=== PATIENT | male | born 1935 | race Caucasian/White ===

== ENCOUNTER → 2017-02-04 | Outpatient (CLI) | payer OTHER | LOC: BHLMT 10:00 | PROVIDERS: ATTEND Internal Medicine Interventional Cardiology | DX: R01.1 Cardiac murmur, unspecified (principal); I48.91 Unspecified atrial fibrillation | CPT/HCPCS: 93306-PO ==

== ENCOUNTER → 2017-12-08 | Outpatient (CLI) | payer OTHER | LOC: FIMAGING 19:15 | PROVIDERS: ATTEND Physical Medicine & Rehabilitation Pain Medicine | DX: M51.26 Other intervertebral disc displacement, lumbar region (principal); M48.061 Spinal stenosis, lumbar region without neurogenic claudication; M51.36 Other intervertebral disc degeneration, lumbar region; M51.37 Other intervertebral disc degeneration, lumbosacral region; M99.73 Connective tissue and disc stenosis of intervertebral foramina of lumbar region ==

== ENCOUNTER 2018-03-15 10:40 | Observation (INO) | payer OTHER ==
--- NOTE | 2018-03-15 11:11 | CPEKG ---
Heart Rate: 123 RR Interval: 488 P-R Interval: 156 QRSD Interval: 124 QT Interval: 316 QTC Interval: 452 P [place]: 108 QRS [place]: 24 T Wave [place]: -19 EKG Severity - ABNORMAL ECG - EKG Impression: SINUS TACHYCARDIA EKG Impression: IVCD, CONSIDER ATYPICAL RBBB Electronically Signed By: Marivel Mancini 15-Mar-2018 15:02:14
[2018-03-15 11:34] LABS: PLATELET COUNT 175 10^3/uL (150-400)
--- NOTE | 2018-03-15 11:48 | EDPHY ---
H & P Stated Complaint: Elevated heart rate. Time Seen by Provider: 03/15/18 11:47 HPI/ROS: CHIEF COMPLAINT: "My pulse is high" HISTORY OF PRESENT ILLNESS: The patient is an 82 y/o male with intermittent atrial fibrillation (cardioverted in the past, last known episode of afib in 2013) arriving with his complaining of a rapid heart rate onset this morning. It's not clear if he woke up with symptoms or if they began after waking. He has had similar symptoms previously and he said it "was the same thing, it just goes out of whack with the a-fib." He denies dyspnea or chest pain, but does note a brief 5-minute episode of left anterior shoulder pain on the drive here. He takes a full aspirin every other day, but otherwise does not use any medications. No fever, cough, vomiting, diarrhea, abdominal pain, blood in stool. No caffeine today. One week ago he got out of bed quickly to answer his phone and possibly briefly lost consciousness then fell and struck his posterior right shoulder and forehead on furniture; he denies any ongoing symptoms related to this. REVIEW OF SYSTEMS: A ten point review of systems was performed and is negative with the exception of the items mentioned in the HPI. Past medical history: Paroxysmal atrial fibrillation - no medications, prior cardioversions x2; valvular heart disease; skin cancer Past surgical history: Skin lesion resections Family history: Noncontributory Social history: at bedside, she notes they have both been under stress lately because she just had a tumor resected from her breast. Lives in [place]. Retired cadd drafter. PCP: Dr. Hester. Paring Machine Operator: Dr. Bautista. General Appearance: Alert. Vital signs reviewed. HR 120s. Blood pressure 137 /94. Eyes: Pupils equal and round, no conjunctival injection, no discharge. Anicteric. ENT, Mouth: Mucous membranes are moist, no oropharyngeal erythema or edema. Neck: No lymphadenopathy, supple. No jugular venous distension. Respiratory: Lungs are clear to auscultation; no wheezes, rales, or rhonchi. Cardiovascular: Regular rate and rhythm; no murmur, rub, or gallop. Gastrointestinal: Abdomen is soft and nontender, no masses or organomegaly. Skin: Warm and dry, no rashes on exposed skin, normal color. Back: Nontender to palpation over the thoracolumbar spine. No CVAT. Extremities: No lower extremity edema, no calf tenderness or swelling. Purple bruise posterior right shoulder. Neurological: Alert and oriented. Moving all four extremities easily and equally. Psychiatric: Normal affect. - Personal History Current Tetanus Diphtheria and Acellular Pertussis (TDAP): Unsure - Medical/Surgical History Hx Asthma: No Hx Chronic Respiratory Disease: No Hx Diabetes: No Hx Cardiac Disease: Yes Hx Renal Disease: No Hx Cirrhosis: No Hx Alcoholism: No Hx HIV/AIDS: No Hx Splenectomy or Spleen Trauma: No Other PMH: heart valve "leakage". afib. - Social History Smoking Status: Never smoked Constitutional: Initial Vital Signs Temperature (C) 36.4 C 03/15/18 10:41 Heart Rate 122 H 03/15/18 10:41 Respiratory Rate 16 03/15/18 10:41 Blood Pressure 137/94 H 03/15/18 10:41 O2 Sat (%) 94 03/15/18 10:41 O2 Delivery Mode Room Air Allergies/Adverse Reactions: No Known Allergies Allergy (Verified 02/18/14 09:42) Home Medications: Medication Instructions Recorded Aspirin [Aspirin 325 mg (*)] 325 mg PO Q2D 03/15/18 Carboxymethylcellulose 1% [Refresh 1 drop EACHEYE DAILY PRN 03/15/18 Celluvisc (*)] Melatonin [Melatonin 3 MG (*)] 3 mg PO HS PRN 03/15/18 Medical Decision Making ED Course/Re-evaluation: This is a well-appearing 82 y/o male with a history of occasional atrial fibrillation who presents with tachycardia onset this morning, but few other symptoms. His HR has been around 120 while here. Posterior right shoulder ecchymosis noted--he states that this is the result of a fall last week. He has full active range of motion of his right shoulder. Exam is unremarkable otherwise. Plan for IV, labs, EKG. The 12 lead EKG was interpreted by myself. Sinus tachycardia rate 123. See hard copy and/or "tracemaster" electronic copy for interpretation. 10mg IV Diltazem and 1L IV NS ordered. Reassessed patient. Two-lead EKG on monitor appears to be atrial flutter. Rate on monitor is steady around 120. BP now 108 systolic. Plan for repeat EKG. Was being given IV fluids, normal saline. Will start IV diltiazem. I am planning admission for rate control and possible cardioversion. He will likely require ALISON prior to cardioversion. Anticoagulation has not been started in the emergency department. 1249: Spoke with hospitalist service. Dr. Hill accepts admission. The 12 lead EKG was interpreted by myself. Sinus tachycardia. See hard copy and/ or "tracemaster" electronic copy for interpretation. 1302: Consulted with Dr. Foster, pharmaceutical laboratory technician. He will consult during admission. Differential Diagnosis: Considered a differential diagnosis that includes but is not limited to sinus tachycardia, atrial fibrillation, atrial flutter, acute coronary syndrome, valvular disease, hypertension,, stimulant use. - Data Points Laboratory Results: Laboratory Results 03/15/18 11:15 03/15/18 11:15 03/15/18 03/15/18 03/15/18 11:15 11:15 11:15 WBC RBC Hgb Hct MCV MCH MCHC RDW Plt Count MPV Neut % (Auto) Lymph % (Auto) [place] % (Auto) Eos % (Auto) Baso % (Auto) Nucleat RBC Rel Count Absolute Neuts (auto) Absolute Lymphs (auto) Absolute Monos (auto) Absolute Eos (auto) Absolute Basos (auto) Absolute Nucleated RBC Immature Gran % Immature Gran # Sodium 144 mEq/L mEq/L (135-145) Potassium 4.2 mEq/L mEq/L (3.3-5.0) Chloride 111 mEq/L H mEq/L (97-110) Carbon Dioxide 22 mEq/l mEq/l (22-31) Anion Gap 11 mEq/L mEq/L (8-16) BUN 21 mg/dL mg/dL (7-23) Creatinine 0.8 mg/dL mg/dL (0.7-1.3) Estimated GFR > 60 Glucose 117 mg/dL H mg/dL (70-100) Calcium 10.0 mg/dL mg/dL (8.5-10.4) Troponin I 0.012 ng/mL ng/mL (0.000-0.034) TSH 0.454 uIU/mL L uIU/mL (0.465-4.680) 03/15/18 11:15 WBC 7.15 10^3/uL 10^3/uL (3.80-9.50) RBC 4.64 10^6/uL 10^6/uL (4.40-6.38) Hgb 15.5 g/dL g/dL (13.7-17.5) Hct 45.4 % % (40.0-51.0) MCV 97.8 fL fL (81.5-99.8) MCH 33.4 pg pg (27.9-34.1) MCHC 34.1 g/dL g/dL (32.4-36.7) RDW 13.9 % % (11.5-15.2) Plt Count 175 10^3/uL 10^3/uL (150-400) MPV 10.8 fL fL (8.7-11.7) Neut % (Auto) 75.0 % H % (39.3-74.2) Lymph % (Auto) 15.4 % % (15.0-45.0) [place] % (Auto) 7.7 % % (4.5-13.0) Eos % (Auto) 1.1 % % (0.6-7.6) Baso % (Auto) 0.4 % % (0.3-1.7) Nucleat RBC Rel Count 0.0 % % (0.0-0.2) Absolute Neuts (auto) 5.36 10^3/uL 10^3/uL (1.70-6.50) Absolute Lymphs (auto) 1.10 10^3/uL 10^3/uL (1.00-3.00) Absolute Monos (auto) 0.55 10^3/uL 10^3/uL (0.30-0.80) Absolute Eos (auto) 0.08 10^3/uL 10^3/uL (0.03-0.40) Absolute Basos (auto) 0.03 10^3/uL 10^3/uL (0.02-0.10) Absolute Nucleated RBC 0.00 10^3/uL 10^3/uL (0-0.01) Immature Gran % 0.4 % % (0.0-1.1) Immature Gran # 0.03 10^3/uL 10^3/uL (0.00-0.10) Sodium Potassium Chloride Carbon Dioxide Anion Gap BUN Creatinine Estimated GFR Glucose Calcium Troponin I TSH Medications Given: Discontinued Medications Diltiazem HCl (Cardizem 25 Mg/5 Ml Vial) 10 mg IVP EDNOW ONE Stop: 03/15/18 12:09 Last Admin: 03/15/18 12:22 Dose: 10 mg Sodium Chloride (Ns) 1,000 mls @ 0 mls/hr IV ONCE ONE; Wide Open PRN Reason: Protocol Stop: 03/15/18 12:00 Last Admin: 03/15/18 12:11 Dose: 1,000 mls Diltiazem HCl 125 mg/ Dextrose 125 mls @ 0 mls/hr IV EDNOW ONE; As Directed PRN Reason: Protocol Stop: 03/15/18 12:47 Last Admin: 03/15/18 13:33 Dose: 125 mls Departure - Departure Disposition: [facility] Inpatient Acute Clinical Impression: Atrial flutter Qualifiers: Atrial flutter type: unspecified Qualified Code(s): I48.92 - Unspecified atrial flutter Condition: Fair Report Scribed for: Marivel Mancini Report Scribed by: Vilma Alcantara Date of Report: 03/15/18 Time of Report: 12:06 Physician Review and Approval Statement: 03/15/18 11:48 Portions of this note were transcribed by the medical research associate. I, Dr. Marivel Mancini, personally performed the history, physical exam, and medical decision- making; and confirmed the accuracy of the information in the transcribed note.
[2018-03-15] MEDS ORDERED: NS 1,000 ML IV ONE (11:59)
[2018-03-15] MEDS ORDERED: DILTIAZEM 25 MG/5 ML VIAL IVP ONE (12:08)
[2018-03-15] MEDS ORDERED: DILTIAZEM 125 MG in D5W 125 ML IV ONE (12:46)
[2018-03-15] MEDS ORDERED: MELATONIN 3 MG TAB PO PRN (13:46)
[2018-03-15] MEDS ORDERED: CARBOXYMETHYLCELLULOSE 1% 0.4 ML DROPERETTE EACHEYE PRN (13:46)
--- NOTE | 2018-03-15 13:53 | GHP ---
[f rep st] HISTORY AND PHYSICAL DATE OF ADMISSION: 03/15/2018 CHIEF COMPLAINT: Tachycardia. HISTORY OF PRESENT ILLNESS: This is an 82-year-old male with history of paroxysmal atrial fibrillati on requiring cardioversion, last episode was 3 years ago and prior to that was 5 years before that. He presents to the hospital with tachycardia. This morning, the patient notice some palpitations. H e took his pulse and noted it to be in the mid 120s. He also took his blood pressure, which was norm al. He denies any chest pain. He denies any excessive alcohol use. He is unsure what triggered thi s episode. 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 PAST MEDICAL HISTORY: 1. Atrial fibrillation. 2. Valvular heart disease. PAST SURGICAL HISTORY: Denies other than cardioversion. HOME MEDICATIONS: Reviewed, refer to [facility] for details. ALLERGIES: No known drug allergies. SOCIAL HISTORY: The patient lives in [place]. He denies any alcohol, tobacco, or illicit drug use. FAMILY HISTORY: Reviewed and noncontributory. REVIEW OF SYSTEMS: Comprehensive 10-point review of systems was done and is negative, except for as mentioned in the HPI. PHYSICAL EXAMINATION: VITAL SIGNS: Blood pressure 122/92, pulse 124, respiratory rate 16, O2 satura tion 92% on room air. Temperature afebrile. GENERAL: In no acute distress. HEENT: Head: Normoce phalic, atraumatic. Eyes: PERRLA. Sclerae anicteric. Mouth: Moist mucous membranes. NECK: Supp le. No lymphadenopathy. CARDIOVASCULAR: Tachycardic S1, S2. No JVD. No lower extremity edema. P ULMONARY: Lungs are clear. No wheezes, rales, or rhonchi. ABDOMEN: Soft, nontender, nondistended. No guarding or rebound tenderness. Normoactive bowel sounds. EXTREMITIES: No clubbing or cyanosi s. NEURO: Cranial nerves 2-12 grossly intact. No focal, motor, or sensory deficits. SKIN: Clear. No rashes. DIAGNOSTICS: WBC 7.15, hemoglobin 15.5, hematocrit 45.4, platelets 175. Sodium 144, potassium 4.2, chloride 111, BUN 21, creatinine 0.8, glucose 117. Troponins negative. EKG, which I visualized and personally interpreted, was read as sinus tachycardia, rate 123 beats per minute, but in the ER, it appears that he is in atrial flutter on the monitor. ASSESSMENT/PLAN: 1. This is an 82-year-old male with history of paroxysmal atrial fibrillation presenting with tachyc ardia which I suspect is due to atrial flutter. Plan: Patient will be placed on observation. Cardi ology has been consulted by the ER. We will obtain echocardiogram. Will start on Eliquis for stroke prophylaxis. We will also start on IV diltiazem with a goal rate of less than 100. 2. History of valvular heart disease. Plan: We will obtain an echocardiogram. CODE STATUS: The patient requests to be full code status. /[id number]/MODL
[2018-03-15] MEDS ORDERED: DILTIAZEM 125 MG in D5W 125 ML IV SCH (14:00)
[2018-03-15] MEDS ORDERED: ACETAMINOPHEN 325 MG TAB PO PRN (16:09)
--- NOTE | 2018-03-15 16:09 | ECHO ---
[email or web address] [address] [address] Main: [phone] Fax: [email or web address] Echocardiogram Name: NARDA GIRARD MR#: [id number] Study Date: 03/15/2018 Study Time: 02:32 PM Date of : 1935 Age: 82 year(s) Height: 182.9 cm (72 in.) Weight: 122.47 kg (270 lb.) BSA: 2.42 m2 Gender: Male Examination: Echo Indication: Atrial Fibrillation Image Quality: Technically Difficult Contrast: Requested by: Pako Hill BP: 138 mmHg/82 mmHg Heart Rate: Rhythm: Indication: Atrial Fibrillation Procedure Staff Airline Pilot Flight Instructor: Amina Abdul RDCS Reading Physician: Sarwat Champion MD Requesting Provider: Conclusions: Normal size left ventricle. Normal global systolic LV function. The ejection fraction is estimated to be 55-60 %. Mild mitral annular calcification. Trivial to mild mitral regurgitation. Moderate aortic cusp calcification is present. No aortic valve stenosis is present. Mildly dilated ascending aorta measuring 4.6 cm. No old studies for comparison. Measurements: Chambers Valvular Assessment AV/MV Valvular Assessment TV/PV Normal Normal Normal Name Value Range Name Value Range Name Value Range IVSd (2D): 1.2 cm (0.6 cm-1.1 AV Vmax: 0.95 m/s (1 m/s-1.7 TR Vmax: 2.54 mm/s ( - ) cm) m/s) TR PGmax: 26 mmHg ( - ) LVDd (2D): 5.4 cm (4.2 cm-5.9 AV meanP mmHg ( - ) syst. PAP: 31 mmHg ( - ) cm) MV E Vmax: 0.98 m/s ( - ) LVDs (2D): 4.3 cm (2.1 cm-4 cm) LVPWd (2D): 1.0 cm (0.6 cm-1 cm) EF Range: 55-60 % Continued Measurements: Chambers Valvular Assessment AV/MV Valvular Assessment TV/PV Name Value Name Value Name Value LADs: 5.2 cm MV E' Septal: 0.05 m/s CVP (est.): 5 mmHg Patient: NARDA GIRARD Study Date: 03/15/2018 Page 1 of 2 02:32 PM MV E/E' Septal: 20.80 MV E/E' Lateral: 10.70 Additional Vessels Name Value Ao Ascendin.6 cm Findings: Left Ventricle: Normal size left ventricle. No LV hypertrophy. Normal global systolic LV function. The ejection fraction is estimated to be 55-60 %. No regional wall motion abnormality. Right Ventricle: Normal size right ventricle. Left Atrium: The left atrium is normal in size. Right Atrium: The right atrium is normal in size. Mitral Valve: Mild mitral annular calcification. Trivial to mild mitral regurgitation. Aortic Valve: Moderate aortic cusp calcification is present. No aortic valve stenosis is present. Tricuspid Valve: The tricuspid valve is normal in appearance and function. Mild tricuspid regurgitation is present. The pulmonary artery pressure is normal. Pulmonic Valve: The pulmonic valve is normal in appearance and function. Mild pulmonic valve regurgitation is noted. Aorta: The aorta is normal. Mildly dilated ascending aorta measuring 4.6 cm. Pericardium: No pericardial effusion. There is pericardial fat. (No Signature Object) Patient: NARDA GIRARD Study Date: 03/15/2018 Page 2 of 2 02:32 PM D:_[id number]
[2018-03-15] MEDS: ENOXAPARIN 120 MG/0.8 ML SYR SC SCH ×2 (17:30→21:36)
[2018-03-16 05:41] LABS: PLATELET COUNT 167 10^3/uL (150-400)
--- NOTE | 2018-03-16 09:39 | CPEKG ---
Heart Rate: 124 RR Interval: 484 P-R Interval: 216 QRSD Interval: 118 QT Interval: 328 QTC Interval: 471 P [place]: 133 QRS [place]: 3 T Wave [place]: -52 EKG Severity - ABNORMAL ECG - EKG Impression: SINUS TACHYCARDIA EKG Impression: FIRST DEGREE AV BLOCK EKG Impression: INCOMPLETE RIGHT BUNDLE BRANCH BLOCK Electronically Signed For: Marivel Mancini 16-Mar-2018 09:40:47
[2018-03-16] MEDS: ENOXAPARIN 120 MG/0.8 ML SYR SC SCH (10:33)
[2018-03-16 12:13] VITALS: BP 162/82
--- NOTE | 2018-03-16 13:59 | GDS ---
[f rep st] DISCHARGE SUMMARY DISCHARGE DIAGNOSES: 1. Paroxysmal atrial flutter, status post spontaneous cardioversion. 2. History of valvular heart disease. 3. Mildly suppressed TSH at 0.454 with normal free T4. CONSULTANTS: Dr. Will Foster, [facility]. HOSPITAL COURSE: Atrial flutter: The patient presented from heart rate in the 120s. He was started on a diltiazem drip and subsequently converted back to sinus rhythm. He received a dose of low mole cular weight heparin while in the hospital. After speaking with Dr. Foster, patient elected to start warfarin. His CHADS2-VASc score was calculated to be 2. An echocardiogram was done prior to discha rge, which showed an ejection fraction of 55%-60%, with moderate aortic cusp calcification with mild tricuspid regurgitation and mild pulmonic valve regurgitation. On day of discharge, the patient states he feels well and is agreeable to discharge home. DISCHARGE MEDICATIONS: Please refer to discharge medication reconciliation in [facility] for full deta ils. Below is a preliminary list: New medications on hospital discharge: Warfarin 5 mg p.o. daily, metoprolol succinate 25 mg daily. DISCHARGE INSTRUCTIONS: The patient will be discharged from the hospital where he should remain on a spirin 81 mg for a week, then stop after being on warfarin for week. He plans to follow up at [facility] for routine INR monitoring with a goal INR of 2.5. He should follow up with Dr. Binh fernandez for routine hospital followup and will need repeat thyroid testing to ensure he does not have hype rthyroidism contributing to his tachyarrhythmias. /[id number]/MODL
--- NOTE | 2018-03-16 14:50 | GCON ---
[f rep st] CONSULTATION CHIEF COMPLAINT: He is an 82-year-old gentleman admitted with atrial fibrillation. HISTORY OF PRESENT ILLNESS: We have been asked to do a cardiovascular consultation for his atrial fi brillation. He woke up yesterday morning at home in his usual state of health, but he noticed that something was a little bit funny about his heart, and he usually went and had coffee with his in the morning a nd decided he did not really feel well and did not want to do that, which is quite abnormal for him. She got out her blood pressure cuff and found that it informed them that his heart rate was in the 1 25 range, and they decided to come to the emergency room. He was in atrial fibrillation with a rapid ventricular response with no respiratory distress and no significant cardiovascular symptoms. He is getting this intermittent fast heartbeat quite often lately. It goes away usually quite quickl y. He has no history of chest pain, jaw pain, arm pain, chest tightness, heaviness, or squeezing around the chest. He has not had any pleuritic chest pain. He has not had orthopnea, PND, or dyspnea on exertion. He has no hot, swollen joints or major rashes. He has had no trauma to the head, neck, or chest. He has no fevers or chills, upper respiratory tract symptoms, dysuria, or other signs of infection. He has been in his usual state of health has mentioned. He has no other major complaints. He never had ventricular arrhythmias, but he has been intermittent ly having atrial fibrillation. He is known to have 3 valves that leak a small amount, but they are not causing trouble. He has been cardioverted for atrial fibrillation twice before. His past cardiac history is positive for risk factors of being obese. CARDIAC RISK FACTORS: Negative for hypertension, hyperlipidemia, diabetes mellitus, known coronary d isease, smoking history, hyperuricemia, or any family history of premature coronary artery disease. PAST MEDICAL HISTORY: ALLERGIES: None. MEDICATIONS: In [place] and not repeated here. FAMILY HISTORY: He has no family history of premature coronary artery disease. He has no history of unexplained sudden in his family at a young age. SOCIAL HISTORY: He was born in [place], [place], at age 6, went to [place], then he went to [place]. He we nt to high school in [place], [place], which is right next to [place]. He spent 23 years recently in [place], [place], retired, and he walks on a daily basis. 3 years ago, they moved to [place]. He li ves up by [place]. He lives with his who is wonderful and is healthy. He does not smoke. He does not drink significant amounts of alcohol. REVIEW OF SYSTEMS: 10-point review of systems is negative except as noted. PHYSICAL EXAMINATION: VITAL SIGNS: Blood pressure 120/70. Heart rate 70. Respiratory rate 14. He is afebrile. Sitting comfortably in a hospital bed. HEENT: Pupils equal and reactive. Mucous mem branes and mouth moist. NECK: Supple. CARDIOVASCULAR: Reveals S1, S2. Soft systolic murmur at th e left sternal border. No diastolic murmur. No S3, S4, or rubs. He has irregular rhythm. CVA: No tenderness. ABDOMEN: Soft, nontender, without masses. EXTREMITIES: No edema inflammation or ulce ration. NEUROLOGIC: Cranial nerves 2 through 12 grossly normal. Motor and sensory intact. SKIN: S hows age-related changes. He is obese. PSYCHIATRIC: No obvious anxiety or depression. LABORATORY: White count 7.1, hematocrit 45. Followup white count 6.38, hematocrit 41. Chemistries show a sodium of 144, potassium 3.8, chloride 114, carbon dioxide 23, BUN 20, creatinine 0.8, total p rotein 5.5. Troponin negative. TSH 0.454. Echocardiographic study shows no significant pathologic abnormalities. EKG showed atrial fibrillation, and then subsequently he converted to normal sinus rh [facility]. His last EKG showed sinus tachycardia of 124. He now has a heart rate down in the 70s with no sympto ms, an interventricular conduction delay, diffuse nonspecific ST-T changes. ASSESSMENT AND PLAN: 1. Atrial fibrillation. 2. Obesity. The patient is getting intermittent episodes of atrial fibrillation at age 82. The CHADS-VASc score would indicate that he would benefit from full anticoagulation. In the past, he has not been willing to do that except after cardioversions he would do it for 4 to 6 weeks. I have talked to him and his extensively today. I have been in the room several times, and he i s willing to go with Coumadin which would be his drug of choice as opposed to Eliquis or any other no cristiane oral anticoagulant. I have talked to them and to the hospitalist about the protocol I would use which is to take aspirin daily for the next 7 days at 81 mg. He is going to start taking Coumadin 5 mg a day and in 7 days, get his blood drawn at [facility] which is next to their home. [facility] will report the results to our Coumadin clinic at [facility], and th at Coumadin clinic will adjust his doses of Coumadin, and he is not going to continue taking it after the 7 days until he hears from them and does whatever they tell him, which could include not taking any for a little while if he is too anticoagulated to such things as increasing the medicine, reversi ng the medicine if necessary, etc. So he and his understand this. That is the plan. They understand that they are not going to be fully anticoagulated in the 1st 3 or 4 days of this trial until his INR is greater than 2.0, and the y accept that. If he has any trouble with bleeding, he is going to get back to us and let us know. Obesity: He has a significant obesity issue. Clearly this is not going to help his metabolic health , and we have talked about exercise programs such that he will also lose weight but increase his bloo d pressure control, increase his blood sugar control, improve his lipids, etc., with a daily regimen of walking. I totally believe he will do this and he will do a good job at it. Prevention: It has been a couple years since he has had a nuclear stress test, and we would recommen d at some point that he do that. He is going to talk to his primary care doctor, and he may well fol low up with me, as well. I am very happy to see him if that is what he would like to do. His echocardiographic study today showed a normal ejection fraction, mild mitral annular calcificatio n, trivial to mild mitral regurgitation, no aortic stenosis, mildly dilated ascending aorta measuring 4.6 cm. He has no significant major valvular heart disease right now. That echocardiographic study was read by my partner, Dr. Champion. I have answered the family's questions, and we will be available for them at any time. /[id number]/MODL
--- NOTE | 2018-03-16 14:50 | ASMTCMCOM ---
CM Note CM Note Notes: Pt was admitted with tachycardia. Cardiology consulted. He has a hx of afib and cardioversion, and valvular heart disease. He lives with his in [place]. CM will follow for any d/c needs. Date Signed: 03/16/2018 02:49 PM Electronically Signed By:MEEK English
--- NOTE | 2018-03-16 14:54 | ASDISCHSUM ---
Discharge Information Plan Status:Home with No Needs Medically Cleared to Leave:03/16/2018 Discharge Date:03/16/2018 02:00 PM CM D/C Disposition:Home, Routine, Self-Care ADT D/C Disposition:Home, Routine, Self-Care Projected Discharge Date:03/16/2018 02:00 PM Transportation at D/C:Family Discharge Delay Reason: Follow-Up Date:03/16/2018 02:00 PM Discharge Slot: Final Diagnosis: Placement Information Patient Contact Information Contact Name:TRI Relationship: Address:[address] City:[facility] Phone: State/Zip Code:[place] [address] Email: Financial Information Financial Class:Medicare Primary Plan Desc:MEDICARE OUTPATIENT Primary Plan Number:[id number] Secondary Plan Desc:JEFFERY Secondary Plan Number:[id number] Assessment Information [facility] CM Progress Note CM Note IBRAHIMA Note Notes: Pt was admitted with tachycardia. Cardiology consulted. He has a hx of afib and cardioversion, and valvular heart disease. He lives with his in [place]. CM will follow for any d/c needs. Date Signed: 03/16/2018 02:49 PM Electronically Signed By:MEEK English LACE YURY Length of stay for Answers: Less than 1 day current admission Acuity / Level of Answers: No Care: Did the patient have an inpatient admission? Comorbidities - select Answers: Other Notes: afib, valvular heart all that apply disease # of Emergency department Answers: 1-2 visits in the last 6 months Score: 2 Date Signed: 03/16/2018 02:52 PM Electronically Signed By:MEEK English Case Management Discharge Plan Note Case Management Discharge Discharge Order Complete? Answers: Yes Patient to Obtain Answers: via Family Medications Transportation Arranged Answers: Family/Friends Discharge Comments Notes: Pt discharged home today with no CM needs. The pharmacist set up a follow up appt [facility] and is notifying pt. Date Signed: 03/16/2018 02:51 PM Electronically Signed By:MEEK English Intervention Information Intervention Type:*REMY-Signed Date of Service:03/16/2018 10:18 AM Patient Type:Observation Staff Member:Kathie Zuniga Hours: Discipline: Severity: Comment:
[2018-03-17] MEDS ORDERED: ASPIRIN 325 MG TAB PO SCH (09:00)
== END 2018-03-16 14:00 | disposition home or self-care (01) ==
LOC: F2N 14:08
PROVIDERS: ADMIT Family Medicine; ATTEND Family Medicine
DX: I48.92 Unspecified atrial flutter (principal); I48.91 Unspecified atrial fibrillation; R94.6 Abnormal results of thyroid function studies; I35.9 Nonrheumatic aortic valve disorder, unspecified; E66.9 Obesity, unspecified; E86.9 Volume depletion, unspecified
CPT/HCPCS: 93005; 93306; 96361; 96374; 96375; 99285; G0378; J1650

== ENCOUNTER → 2018-03-24 | Outpatient (CLI) | payer OTHER | DX: I34.0 Nonrheumatic mitral (valve) insufficiency (principal); I48.91 Unspecified atrial fibrillation ==

== ENCOUNTER 2018-08-03 09:02 | Emergency (ER) | payer OTHER ==
--- NOTE | 2018-08-03 09:10 | EDPHY ---
H & P Stated Complaint: Tachycardia Time Seen by Provider: 08/03/18 09:03 HPI/ROS: CHIEF COMPLAINT: Tachycardia HISTORY OF PRESENT ILLNESS: The patient has a history of paroxysmal atrial fibrillation presents to the ED with tachycardia that began earlier today. The patient was hospitalized with similar symptoms in February of this year and did spontaneously convert to a sinus rhythm. Since that time he has been maintained on Coumadin. The patient denies any chest pain or shortness of breath. The patient denies any p.o. intake today. The patient does have a history of obstructive sleep apnea. The patient reportedly does take metoprolol for rate control. The patient denies any fever, cough or congestion. The patient does have a history of known valvular heart disease based upon his echocardiogram 4 months ago. REVIEW OF SYSTEMS: A comprehensive 10 point review of systems is otherwise negative aside from elements mentioned in the history of present illness. The Source: Patient Exam Limitations: No limitations - Personal History Current Tetanus/Diphtheria Vaccine: Yes - Medical/Surgical History Hx Asthma: No Hx Chronic Respiratory Disease: No Hx Diabetes: No Hx Cardiac Disease: Yes Hx Renal Disease: No Hx Cirrhosis: No Hx Alcoholism: No Hx HIV/AIDS: No Hx Splenectomy or Spleen Trauma: No Other PMH: heart valve "leakage". afib. - Social History Smoking Status: Never smoked - Physical Exam Exam: General Appearance: Alert, no distress Eyes: Pupils equal and round no pallor or injection ENT, Mouth: Mucous membranes moist Respiratory: Tachycardic and regular Cardiovascular: Regular rate and rhythm Gastrointestinal: Abdomen is soft and nontender, no masses, bowel sounds normal Neurological: A&O, normal motor function, normal sensory exam, normal cranial nerves Skin: Warm and dry, no rashes Musculoskeletal: Neck is supple nontender Extremities: symmetrical, full range of motion Psychiatric: Patient is oriented X 3, there is no agitation Constitutional: Initial Vital Signs Temperature (C) 36.6 C 08/03/18 09:08 Heart Rate 122 H 08/03/18 09:08 Respiratory Rate 18 08/03/18 09:08 Blood Pressure 126/110 H 08/03/18 09:08 O2 Sat (%) 93 08/03/18 09:08 O2 Delivery Mode Room Air Allergies/Adverse Reactions: No Known Allergies Allergy (Verified 08/03/18 09:09) Home Medications: Medication Instructions Recorded Aspirin [Aspirin 325 mg (*)] 325 mg PO Q2D 03/15/18 Carboxymethylcellulose 1% [Refresh 1 drop EACHEYE DAILY PRN 03/15/18 Celluvisc (*)] Melatonin [Melatonin 3 MG (*)] 3 mg PO HS PRN 03/15/18 Metoprolol Succinate 25 mg PO DAILY #30 tab.er.24h 03/16/18 Warfarin Sodium 5 mg PO DAILY #14 tablet 03/16/18 Medical Decision Making - Diagnostics EKG Interpretation: EKG: Complete interpretation has been separately recorded in the Tracemaster archive. Summary impression: Atrial flutter, rate 121, nonspecific interventricular conduction delay noted, right bundle branch pattern Procedures: Procedure: Conscious sedation. Indication: Cardioversion I was asked by Dr. Jamie South to perform procedural sedation. The patient is an appropriate candidate to tolerate procedural sedation. The patient's vital signs and mental status are appropriate. The risks, benefits and alternatives of the sedation were discussed with the patient. The patient is ASA classification 2. The patient's Mallampati airway score was 2 and the patient did meet the 3-3-2 airway measurements. A time out was completed. The patient was sedated with 60 mg of propofol. The patient was monitored with continuous pulse oximetry, monitor car operator and end tidal CO2. There were no complications and no significant hypoxemia. I performed only the conscious sedation The total time I spent at the bedside during the procedural sedation was 16 minutes. The patient was examined after the procedural sedation and has returned to their pre -sedation baseline with normal vital signs and a normal examination. ED Course/Re-evaluation: The patient presents the ED with recurrent atrial flutter. The patient has no complaints of chest pain or acute shortness of breath. The patient had an IV established. He was placed on a nuclear monitoring technician. He was given 10 mg of IV diltiazem with minimal improvement of his symptoms. Patient is started on a diltiazem drip. He has remained NPO. Consultation was made with Dr. Jamie South. 10:30 a.m.: The patient was evaluated by Dr. South who would like to perform cardioversion in the emergency department. The patient is an appropriate candidate for this procedure. 11:30 a.m.: The patient was successfully cardioverted by Dr. South. He is currently recovering from his conscious sedation in the emergency department. 12:00 p.m.: The patient is ambulatory without acute complaints. He is maintained a sinus rhythm. His blood pressure is normal. He will be discharged home and follow up as an outpatient with his regular health occupations instructor. Customary aftercare instructions and return precautions have been given. - Data Points Laboratory Results: Laboratory Results 08/03/18 09:15 18 09:15 08/03/18 08/03/18 08/03/18 09:45 09:15 09:15 WBC RBC Hgb Hct MCV MCH MCHC RDW Plt Count MPV Neut % (Auto) Lymph % (Auto) Creek % (Auto) Eos % (Auto) Baso % (Auto) Nucleat RBC Rel Count Absolute Neuts (auto) Absolute Lymphs (auto) Absolute Monos (auto) Absolute Eos (auto) Absolute Basos (auto) Absolute Nucleated RBC Immature Gran % Immature Gran # PT 24.8 SEC H SEC (12.0-15.0) INR 2.24 H (0.83-1.16) APTT 38.1 SEC H SEC (23.0-38.0) Sodium 140 mEq/L mEq/L (135-145) Potassium 4.5 mEq/L mEq/L (3.3-5.0) Chloride 108 mEq/L mEq/L (97-110) Carbon Dioxide 23 mEq/l mEq/l (22-31) Anion Gap 9 mEq/L mEq/L (6-14) BUN 17 mg/dL mg/dL (7-23) Creatinine 0.8 mg/dL mg/dL (0.7-1.3) Estimated GFR > 60 Glucose 123 mg/dL H mg/dL (70-100) Calcium 10.5 mg/dL H mg/dL (8.5-10.4) Magnesium 2.1 mg/dL mg/dL (1.6-2.3) 08/03/18 09:15 WBC 7.84 10^3/uL 10^3/uL (3.80-9.50) RBC 5.05 10^6/uL 10^6/uL (4.40-6.38) Hgb 16.7 g/dL g/dL (13.7-17.5) Hct 48.5 % % (40.0-51.0) MCV 96.0 fL fL (81.5-99.8) MCH 33.1 pg pg (27.9-34.1) MCHC 34.4 g/dL g/dL (32.4-36.7) RDW 13.7 % % (11.5-15.2) Plt Count 182 10^3/uL 10^3/uL (150-400) MPV 10.5 fL fL (8.7-11.7) Neut % (Auto) 68.8 % % (39.3-74.2) Lymph % (Auto) 19.6 % % (15.0-45.0) Creek % (Auto) 9.8 % % (4.5-13.0) Eos % (Auto) 0.9 % % (0.6-7.6) Baso % (Auto) 0.4 % % (0.3-1.7) Nucleat RBC Rel Count 0.0 % % (0.0-0.2) Absolute Neuts (auto) 5.39 10^3/uL 10^3/uL (1.70-6.50) Absolute Lymphs (auto) 1.54 10^3/uL 10^3/uL (1.00-3.00) Absolute Monos (auto) 0.77 10^3/uL 10^3/uL (0.30-0.80) Absolute Eos (auto) 0.07 10^3/uL 10^3/uL (0.03-0.40) Absolute Basos (auto) 0.03 10^3/uL 10^3/uL (0.02-0.10) Absolute Nucleated RBC 0.00 10^3/uL 10^3/uL (0-0.01) Immature Gran % 0.5 % % (0.0-1.1) Immature Gran # 0.04 10^3/uL 10^3/uL (0.00-0.10) PT INR APTT Sodium Potassium Chloride Carbon Dioxide Anion Gap BUN Creatinine Estimated GFR Glucose Calcium Magnesium Medications Given: Discontinued Medications Diltiazem HCl (Cardizem 25 Mg/5 Ml Vial) 10 mg IVP EDNOW ONE Stop: 08/03/18 09:16 Last Admin: 08/03/18 09:21 Dose: 10 mg Diltiazem HCl 125 mg/ Dextrose 125 mls @ 0 mls/hr IV EDNOW ONE; As Directed PRN Reason: Protocol Stop: 08/03/18 09:45 Last Admin: 08/03/18 10:13 Dose: Not Given Propofol (Diprivan) 60 mg IVP EDNOW ONE Stop: 08/03/18 11:11 Last Admin: 08/03/18 11:16 Dose: 60 mg Departure - Departure Disposition: Home, Routine, Self-Care Clinical Impression: Atrial flutter Condition: Good Instructions: Atrial Flutter (ED), Cardioversion (DC) Additional Instructions: 1. Please return to the ED for any recurrent palpitations, chest pain, difficulty breathing or other concerns. 2. Please follow up as scheduled with your primary care provider and health occupations instructor. Referrals: Marshall Olmos MD [Primary Care Provider] - As per Instructions
[2018-08-03] MEDS ORDERED: DILTIAZEM 25 MG/5 ML VIAL IVP ONE (09:15)
[2018-08-03 09:29] LABS: PLATELET COUNT 182 10^3/uL (150-400)
--- NOTE | 2018-08-03 09:41 | CPEKG ---
Test Reason : OPEN Blood Pressure : / mmHG Vent. Rate : 121 BPM Atrial Rate : 122 BPM P-R Int : 181 ms QRS Dur : 121 ms QT Int : 380 ms P-R-T Axes : 203 038 -35 degrees QTc Int : 540 ms Atrial flutter with 2 to 1 block IVCD, consider atypical RBBB Confirmed by Jonny Mendez ([id number]) on 08/03/2018 9:40:50 AM Referred By: Confirmed By:Jonny Mendez
[2018-08-03 09:42] LABS: INR 2.24 (0.83-1.16); PROTIME(PATIENT) 24.8 SEC (12.0-15.0)
[2018-08-03] MEDS ORDERED: DILTIAZEM 125 MG in D5W 125 ML IV ONE (09:44)
[2018-08-03] MEDS ORDERED: PROPOFOL 200 MG/20 ML VIAL IVP ONE (11:10)
[2018-08-03] MEDS ORDERED: PROPOFOL/EMULSION 1,000 MG/100 ML BOTTLE IV ONE (11:13)
[2018-08-03 12:05] VITALS: BP 120/86
--- NOTE | 2018-08-03 12:06 | GCON ---
CARDIOLOGY CONSULTATION DATE OF CONSULTATION: 08/03/2018 REFERRING PHYSICIAN: Jonny Mendez MD REASON FOR CONSULTATION: Atrial flutter, new onset. HISTORY OF PRESENT ILLNESS: The patient is a pleasant 83-year-old gentleman with a known history of paroxysmal atrial fibrillation with a history of cardioversion earlier this year, also with a known h istory of coronary disease by calcium score, hyperlipidemia, and sleep apnea, which is currently untr eated, who states he woke up this morning around 4:30, noticing a rapid irregular rhythm that felt li ke his atrial fibrillation. He denied any complaints of associated chest pain, chest pressure, short ness of breath, or dyspnea on exertion. No complaints of fevers, chills, sweats, nausea, vomiting, o r recent viral illness. He denies any excessive alcohol consumption. No use of cold medicines and n o recent illness or changes to medications. Of note, he has been compliant with his Coumadin, which is managed [facility]. In reviewing his records, his INR on May 20, 2018, was 2.5; on June 03, 2018, was 2.5; on July 03, it was 3.2; on July 15, 2018, it was 3.2; on July 27, it was 2.2; and on August 03, 2018, INR in the ER today was 2.2. He has been compliant with his Coumadin. He took his dose this morning. He remains on a rate control and anticoagulation strategy. CHADS-VASc score of 3. He has a known hi story of sinus bradycardia, on metoprolol succinate 25 mg p.o. b.i.d., with rates primarily in the 50 s. At the time of my exam, he is resting comfortably, without complaint. He remains in a regular tachyc ardic rhythm at 126 beats per minute, consistent with atrial flutter. REVIEW OF SYSTEMS: Ten-point review of systems is negative, as described above. PAST MEDICAL HISTORY: 1. Paroxysmal atrial fibrillation dating back to 2011. 2. Hyperlipidemia. 3. Hyperparathyroidism. 4. Mild mitral regurgitation. 5. Moderately dilated aortic root at 4.6 cm. 6. History of sleep apnea, untreated. 7. History of lumbar spinal stenosis. MEDICATIONS: Medications on admissioninclude metoprolol succinate 25 mg p.o. b.i.d., Coumadin per [facility], and supplements, including vitamin B6 and D3. ALLERGIES: No known allergies to medications. FAMILY HISTORY: Brother is notable for valvular heart disease. SOCIAL HISTORY: He is . He lives with his . He has 2 children, 30-year-old twin josefina barclay who live in [place], and 2 grandchildren. He drinks approximately 2-3 alcoholic beverages per we ek. PHYSICAL EXAMINATION: GENERAL: He is awake, alert, oriented, appropriate, in no apparent distress. VITAL SIGNS: He is in a rapid regular rhythm at 126 beats per minute. Blood pressure 109/76. NECK : There is no evidence of JVP or carotid bruits. LUNGS: Clear to auscultation bilaterally. CARDIA C: S1, S2, rapid regular rhythm. No murmurs, rubs, or gallops. He has trace bilateral ankle edema. LABORATORY DATA: Lab work demonstrates sodium 140, potassium 4.5, chloride 108, bicarb 23, BUN 17, c reatinine 0.8, white blood cell count of 7.8, hemoglobin of 16.7, hematocrit of 44.5, platelets of 18 2, magnesium 2.2. Telemetry demonstrates a rapid regular rhythm at 126 beats per minute, consistent with atrial flutter. IMPRESSION: 1. Atrial flutter. 2. History of paroxysmal atrial fibrillation. 3. Hyperlipidemia. 4. Coronary disease based on calcium score. 5. History of sleep apnea, currently untreated secondary to intolerance to CPAP mask. The patient presents today with a new onset of atrial flutter. He woke up at 4:30 this morning with onset of a rapid regular heart rhythm that felt like his normal atrial fibrillation. No other sympto ms. His INR has been therapeutic dating back to May 20, 2018. INR today is 2.2. He has been complian t with Coumadin. I have recommended he undergo cardioversion in the emergency department. He is agr eeable to pursue. Risks and benefits of the procedure have been discussed in detail. PLAN: 1. Recommend cardioversion. 2. No indication for ALISON in the setting of therapeutic INR over the last 2-1/2 months. 3. The patient is agreeable to pursue. Will plan for cardioversion with the assistance of Dr. Los jung to provide propofol. /[id number]/MODL
--- NOTE | 2018-08-03 12:46 | CPR ---
DATE OF PROCEDURE: 08/03/2018 PROCEDURE PERFORMED: Direct current cardioversion. INDICATION FOR PROCEDURE: Atrial flutter. SUMMARY: After reviewing the patient's INR results dating back to May 20, 2018, his INR has been therapeutic consistently with multiple checks on May 20, June 03, July 01, June h, July 27, and today, all with values between 2.2, and 3.2. He did not require ALISON in the sett ing of therapeutic INR over the last 2-1/2 months. PROCEDURE: After consent was obtained for anesthesia, as well as cardioversion, patient was sedated by Dr. Krishan Mendez with propofol. Once appropriate level of sedation was achieved, patient underwent a single biphasic shock of 200 joules with mandaeism of sinus bradycardia at 57 beats per minute. He tolerated the procedure well. He awoke from the procedure without complications. PLAN: 1. Patient will be discharged home on his current outpatient medications. 2. Patient has been instructed not to miss any doses of Coumadin or his metoprolol. 3. We will arrange for followup with his primary computer information science professor, Dr. Dann Bautista, in the near future. /[id number]/MODL
== END 2018-08-03 12:06 | disposition home or self-care (01) ==
PROC: 5A2204Z Restoration of Cardiac Rhythm, Single (ICD-10-PCS; principal; 2018-08-03)
DX: I48.92 Unspecified atrial flutter (principal); I48.0 Paroxysmal atrial fibrillation; E78.5 Hyperlipidemia, unspecified; I25.10 Atherosclerotic heart disease of native coronary artery without angina pectoris; G47.33 Obstructive sleep apnea (adult) (pediatric); E21.3 Hyperparathyroidism, unspecified; Z79.01 Long term (current) use of anticoagulants
CPT/HCPCS: 92960; 93005; 96374; 99156; 99285; J2704

== ENCOUNTER 2018-08-15 09:34 | Emergency (ER) | payer OTHER ==
--- NOTE | 2018-08-15 09:49 | EDPHY ---
H & P Stated Complaint: Esparto elevated heart rate this am Time Seen by Provider: 08/15/18 09:42 - Medical/Surgical History Hx Asthma: No Hx Chronic Respiratory Disease: No Hx Diabetes: No Hx Cardiac Disease: Yes Hx Renal Disease: No Hx Cirrhosis: No Hx Alcoholism: No Hx HIV/AIDS: No Hx Splenectomy or Spleen Trauma: No Other PMH: heart valve "leakage"., afib. - Social History Smoking Status: Never smoked Constitutional: Initial Vital Signs Temperature (C) 37.0 C 08/15/18 09:38 Heart Rate 94 08/15/18 09:38 Respiratory Rate 18 08/15/18 09:38 Blood Pressure 119/89 H 08/15/18 09:38 O2 Sat (%) 94 08/15/18 09:38 O2 Delivery Mode Non-Rebreather Mask O2 (L/minute) 15 Allergies/Adverse Reactions: No Known Allergies Allergy (Verified 08/03/18 09:09) Home Medications: Medication Instructions Recorded Melatonin [Melatonin 3 MG (*)] 3 mg PO HS PRN 03/15/18 Metoprolol Succinate 25 mg PO DAILY #30 tab.er.24h 03/16/18 Warfarin Sodium 5 mg PO DAILY #14 tablet 03/16/18 Medical Decision Making ED Course/Re-evaluation: CHIEF COMPLAINT: Elevated heart rate, atrial fibrillation HISTORY OF PRESENT ILLNESS: The patient is an anticoagulated (Coumadin) 83 y/o male with a history of atrial fibrillation complaining of elevated heart rate and atrial fibrillation, onset after 3:00 AM this morning. His normal heart rate is in the 40s to 50s and rhythm is sinus. At 6:00 AM, he felt himself switch into atrial fibrillation. He has a history of needing electrical cardioversion with 3 cardioversions since February of this year. He denies chest pain, pressure, nausea, vomiting, or any other associated symptoms. REVIEW OF SYSTEMS: A 10 point review of systems was performed and is negative with the exception of the elements mentioned in the history of present illness. PHYSICAL EXAM: HR, BP, O2 Sat, RR. Temp noted General Appearance: Alert, well hydrated, appropriate, and non-toxic appearing. Head: Atraumatic without scalp tenderness or obvious injury Eyes: Pupils equal, round, reactive to light and accommodation, EOMI, no trauma , no injection. Neck: Supple, 2+ carotid upstroke, nontender, no lymphadenopathy. Respiratory: No retractions, no distress, no wheezes, and no accessory muscle use. Lungs are clear to auscultation bilaterally. Cardiovascular: Elevated rate in the 120s ventricularly with atrial flutter. No murmurs, rubs, or gallops. Gastrointestinal: Abdomen is soft, nontender, non-distended, no masses, no rebound, no guarding, no peritoneal signs. Musculoskeletal: Normal active ROM of all extremities, atraumatic. Neurological: Alert, appropriate, and interactive. Skin: No rashes, good turgor, no nodules on palpation. Past medical history: Atrial fibrillation Past surgical history: Denies Family history: Non-contributory Social history: Daughters and at bedside, [place], retired DIAGNOSTICS/PROCEDURES/CRITICAL CARE TIME: The 12 lead EKG was interpreted by myself. Atrial fibrillation with a 2 to 1 AV block and a rate of 114. Possible ST depression inferiorly. See hard copy and/ or "tracemaster" electronic copy for interpretation. Procedure: Procedural sedation Indication: Cardioversion A pre-sedation evaluation was completed on the patient at 11:00AM. The patient has an ASA class 1 airway. Patient is an appropriate candidate for procedural sedation. The risks, benefits, alternatives of sedation were discussed with the patient. Consent was obtained. The patient was pre-oxygenated with 100% O2 on a [id number] and moved to the procedure room where airway rescue equipment is available. A time out was observed. The patient was sedated with 100 mg propofol. The patient was monitored with continuous pulse oximetry, school lunch monitor, and end tidal CO2. There were no complications and no hypoxemia. The patient tolerated the procedure well and returned to baseline. I remained at the bedside for the sedation. The total time I spent in the procedural sedation was minutes. The procedure was completed by myself, Dr. Alegria. Procedure: Electrical Cardioversion Indication: Arrhythmia Risks, benefits, alternatives discussed with the patient and consent obtained. The patient was on a continuous child monitor, with airway equipment at the bedside. The patient was on continuous pulse oximetry and passive CO2 monitor. The cardioversion was performed with 200 joules synchronized current. The cardioversion was successful. The patient tolerated the procedure well with no complications. The procedure was performed by Dr. Colbert with myself, Dr. Alegria, present and monitoring sedation. The 12 lead EKG was interpreted by myself. Sinus rhythm with 1st degree block. See hard copy and/or "tracemaster" electronic copy for interpretation. DIFFERENTIAL DIAGNOSIS: The differential diagnosis for the patient's narrow complex tachycardia included but was not limited to various causes of sinus tachycardia such as dehydration and medicines, SVT, atrial flutter, atrial fibrillation, pulmonary causes. MEDICAL DECISION MAKING: The patient presents with a 7 hour history of elevated heart rate and atrial fibrillation. His normal rate is in the 40s and 50s. Around 6:00 AM, he developed an elevated heart rate. EKG indicates atrial fibrillation with a 2 to 1 AV block and rate in the 120s. He is not normally in atrial fibrillation. He is anticoagulated and takes metoprolol 2 times daily. Previous episodes of atrial fibrillation have required electrical cardioversion. Plan for coagulation panel, Chem-8, and troponin labs and 150mg amiodarone in anticipation of a likely electrical cardioversion. 10:30 AM - The patient's rate continues to be in the 120s despite amiodarone. 10:50 AM - I spoke with Dr. Cm Colbert, steeler. He will cardiovert the patient in the ED. 11. 15 AM - The procedure was completed with Dr. Colbert. After the procedure, the patient's new rhythm was confirmed by EKG. He is now in sinus rhythm. Dr. Colbert met with the family after while I continued to monitor the patient. The patient tolerated the procedure well. Follow up instructions and return precautions given. The family agrees to this course of action. - Data Points Laboratory Results: 08/15/18 08/15/18 08/15/18 10:19 09:56 09:52 POC Hgb 17.7 gm/dL H gm/dL (13.7-17.5) POC Hct 52 % H % (40-51) PT 23.9 SEC H SEC (12.0-15.0) INR 2.13 H (0.83-1.16) APTT 36.9 SEC SEC (23.0-38.0) POC Sodium 142 mEq/L mEq/L (135-145) POC Potassium 4.0 mEq/L mEq/L (3.3-5.0) POC Chloride 111 mEq/L H mEq/L (97-110) POC BUN 21 mg/dL mg/dL (7-23) POC Creatinine 0.7 mg/dL mg/dL (0.7-1.3) POC Glucose 117 mg/dL H mg/dL (70-100) POC Troponin I 0.00 ng/mL ng/mL (0.00-0.08) Medications Given: Discontinued Medications Amiodarone HCl (Amiodarone Hcl) 100 mls @ 600 mls/hr IV ONCE ONE Stop: 08/15/18 10:24 Last Admin: 08/15/18 10:23 Dose: 100 mls Propofol (Diprivan) 100 mg IVP EDNOW ONE Stop: 08/15/18 11:03 Last Admin: 08/15/18 11:13 Dose: 100 mg Point of Care Test Results: Chemistry 08/15/18 08/15/18 10:19 09:56 POC Sodium 142 mEq/L mEq/L (135-145) POC Potassium 4.0 mEq/L mEq/L (3.3-5.0) POC Chloride 111 mEq/L H mEq/L (97-110) POC BUN 21 mg/dL mg/dL (7-23) POC Creatinine 0.7 mg/dL mg/dL (0.7-1.3) POC Glucose 117 mg/dL H mg/dL (70-100) POC Troponin I 0.00 ng/mL ng/mL (0.00-0.08) ISTAT H&H 08/15/18 10:19 POC Hgb 17.7 gm/dL H gm/dL (13.7-17.5) POC Hct 52 % H % (40-51) Departure - Departure Disposition: Home, Routine, Self-Care Clinical Impression: Atrial fibrillation by electrocardiogram, Encounter for cardioversion procedure Condition: Good Instructions: A-fib (Atrial Fibrillation) (ED), Cardioversion (DC) Additional Instructions: 1. Please follow up with Dr. Bautista or Dr. Colbert this week. 2. If you are in afib but your rate is below 120, call your steeler. 3. Return to the emergency department for any worsening of condition, including chest pain, difficulty breathing, or syncope. Referrals: Marshall Olmos MD [Primary Care Provider] - As per Instructions Dann Bautista MD [Medical Doctor] - As per Instructions Cm Colbert MD [Medical Doctor] - As per Instructions Report Scribed for: Espinoza Alegria Report Scribed by: Kajal Hameed Date of Report: 08/15/18 Time of Report: 10:34
[2018-08-15] MEDS ORDERED: AMIODARONE HCL 100 ML IV ONE (10:15)
[2018-08-15 10:26] LABS: INR 2.13 (0.83-1.16); PROTIME(PATIENT) 23.9 SEC (12.0-15.0)
[2018-08-15] MEDS ORDERED: PROPOFOL 200 MG/20 ML VIAL ONE (10:57)
[2018-08-15] MEDS ORDERED: PROPOFOL 200 MG/20 ML VIAL IVP ONE (11:02)
[2018-08-15 11:43] VITALS: BP 109/71
--- NOTE | 2018-08-15 12:05 | CPR ---
DATE OF PROCEDURE: 08/15/2018 PROCEDURE: Cardioversion. INDICATION: Recurrent atrial fibrillation. HISTORY: An 83-year-old male, known history of atrial fibrillation, with recurrent dysrhythmia. He awoke at 3 a.m. to go to the bathroom. Pulse oximetry revealed a heart rate of 50. He woke early th is morning, again to go to the bathroom. On return, his pulse oximeter showed a heart rate of 115, i rregular, and he came to the emergency department. He denied chest pain, shortness of breath. He carlton d no PND or orthopnea. PHYSICAL EXAMINATION: VITAL SIGNS: On my arrival, heart rate of 114 and irregular. NECK: He had n o JVP, was resting flat. CHEST: Clear. CARDIAC: Irregular regular rhythm, with a 2/6 systolic mur mur. ABDOMEN: Obese, with good bowel sounds. EXTREMITIES: No edema. His EKG shows atrial fibrillation, with a moderately controlled ventricular response. PROCEDURE IN DETAIL: It was elected to proceed with elective cardioversion. He was sedated by Dr. Mendy garibay from the emergency department with propofol. He received a single shock at 200 watt seconds in a synchronized fashion, with church of sinus r hythm. Repeat examination revealed a heart rate of 52. EKG showed sinus rhythm, without acute ST-T changes. CONCLUSION: Successful cardioversion from atrial fibrillation to sinus rhythm. PLAN: 1. Continue chronic anticoagulation. 2. Continue limited rate control with 25 mg of XL metoprolol. 3. Follow up in [address] Bautista to discuss continued rhythm management versus transition to rate control. This was discussed with the patient and his family. He will be followed up as outlined above. /[id number]/MODL
--- NOTE | 2018-08-15 13:32 | CPEKG ---
Test Reason : OPEN Blood Pressure : / mmHG Vent. Rate : 052 BPM Atrial Rate : 052 BPM P-R Int : 211 ms QRS Dur : 129 ms QT Int : 434 ms P-R-T Axes : 000 -03 008 degrees QTc Int : 404 ms Sinus rhythm IVCD, consider atypical RBBB Confirmed by Espinoza Alegria ([id number]) on 08/15/2018 1:32:28 PM Referred By: Confirmed By:Espinoza Alegria
--- NOTE | 2018-08-15 13:32 | CPEKG ---
Test Reason : OPEN Blood Pressure : / mmHG Vent. Rate : 114 BPM Atrial Rate : 231 BPM P-R Int : 178 ms QRS Dur : 126 ms QT Int : 359 ms P-R-T Axes : 204 027 -01 degrees QTc Int : 495 ms Atrial flutter with predominant 2:1 AV block IVCD, consider atypical RBBB ST depr, consider ischemia, inferior leads Confirmed by Espinoza Alegria ([id number]) on 08/15/2018 1:32:26 PM Referred By: Confirmed By:Espinoza Alegria
== END 2018-08-15 11:49 | disposition home or self-care (01) ==
PROC: 5A2204Z Restoration of Cardiac Rhythm, Single (ICD-10-PCS; principal; 2018-08-15)
DX: I48.91 Unspecified atrial fibrillation (principal); Z79.01 Long term (current) use of anticoagulants
CPT/HCPCS: 92960; 93005; J0282; J2704; 82435-PO; 82565-PO; 82947-PO; 84132-PO; 84295-PO; 84484-PO; 84520-PO; 85014-PO; 96374